=== PATIENT | male | born 1975 | race African-American/Black ===

== ENCOUNTER 2019-06-16 02:03 | Emergency (ER) | payer OTHER ==
[~2019-06-16] VITALS: Ht 175.3 cm; Wt 109.3 kg
--- NOTE | 2019-06-16 02:06 | NUR ---
ED Nurse Note: pt walked in c/o sob x 15 min but denies cp, pt reports he was at a constitution party before coming to ED, denies any lung hx but reports he was a smoker and occasionally vape/use marijuana, pt Hx MS. pt AA&ox4, gcs=15, skin warm and dry, noted pt tachypnea but no resp distress noted, airway intact, LS=clear, pt o2sat 100% on RA. sinus rhythm on desk monitor. vss. will cont monitor. mother at the bedside.
[2019-06-16] MEDS ORDERED: PROZAC10 MG ORAL (02:09)
[2019-06-16] MEDS ORDERED: AMITRIPTYLINE100 MG ORAL (02:10)
[2019-06-16] MEDS ORDERED: BACLOFEN5 MG PO (02:10)
[2019-06-16] MEDS ORDERED: LISINOPRIL5 MG ORAL (02:10)
[2019-06-16] MEDS: LORazepam Inj 2mg/ml 1ml IV ONE ×2 (02:42→02:47)
--- NOTE | 2019-06-16 02:44 | Emergency Room Report ---
History of Present Illness General Chief Complaint: Dyspnea/Respdistress Source: Patient Present Illness HPI This is a 44-year-old male with a history of multiple sclerosis. He presents with chief complaint of shortness of breath. Onset was just prior to arrival. He was at a libertarian and was drinking. He also said that he was sleeping a lot. He also became short of breath. No chest pain. No nausea no vomiting. Has a history of anxiety but does not think this feels like anxiety. Denies any fever chills but denies any radiation. Nothing made it better. Nothing made it worse. [place] tightness in his lungs. Allergies: Coded Allergies: PENICILLINS (Verified Allergy, Unknown, 06/16/19) Patient History Past Medical History: see triage record, old chart reviewed Past Surgical History: other Pertinent Family History: none Social History: Denies: smoking Immunizations: other Reviewed Nursing Documentation: PMH: Agreed; PSxH: Agreed Nursing Documentation-PMH Past Medical History: No History, Except For Hx Hypertension: Yes Hx Gastrointestinal Problems: Yes - GERD Review of Systems Eye: Denies: eye pain, blurred vision ENT: Denies: ear pain, nose congestion, throat swelling Respiratory: Reports: shortness of breath; Denies: cough Cardiovascular: Denies: chest pain, palpitations Gastrointestinal: Denies: abdominal pain, diarrhea, nausea, vomiting Musculoskeletal: Denies: back pain, joint pain Skin: Denies: rash Neurological: Denies: headache, numbness Endocrine: Denies: increased thirst, increased urine Hematologic/Lymphatic: Denies: easy bruising All Other Systems: negative except mentioned in HPI Physical Exam Vital Signs Date Time Temp Pulse Resp B/P (MAP) Pulse Ox O2 Delivery O2 Flow Rate FiO2 06/16/19 02:06 98.4 87 18 135/90 (105) 96 Vitals normal Sp02 EP Interpretation: reviewed, normal General Appearance: well appearing, no apparent distress, alert Head: normocephalic, atraumatic Eyes: bilateral eye PERRL, bilateral eye EOMI ENT: hearing grossly normal, normal pharynx Neck: full range of motion, supple, no meningismus Respiratory: chest non-tender, lungs clear, normal breath sounds Cardiovascular #1: regular rate, rhythm, no murmur Gastrointestinal: normal bowel sounds, non tender, no mass, no organomegaly, no bruit, non-distended Musculoskeletal: back normal, gait/station normal, normal range of motion Psychiatric: mood/affect normal Medical Decision Making Diagnostic Impression: Primary Impression: Dyspnea Qualified Codes: R06.00 - Dyspnea, unspecified ER Course This patient presents with dyspnea. This may be secondary to beginning of an infection. This could be secondary to anxiety or from his vaping. No evidence of ACS, PE, dissection to name a few. Patient felt better now. Will discharge home. EKG Diagnostic Results Rate: normal Rhythm: NSR ST Segments: no acute changes Rhythm Strip Diag. Results EP Interpretation: yes Rate: 87 Rhythm: NSR, no PVC's, no ectopy Chest X-Ray Diagnostic Results Chest X-Ray Diagnostic Results : Chest X-Ray Ordered: Yes # of Views/Limited/Complete: 1 View Indication: Shortness of Breath EP Interpretation: Yes Interpretation: no consolidation, no effusion, no pneumothorax, no acute cardiopulmonary disease Impression: No acute disease Electronically Signed by: Eduardo Gonzalez MD Last Vital Signs Date Time Temp Pulse Resp B/P (MAP) Pulse Ox O2 Delivery O2 Flow Rate FiO2 06/16/19 02:06 98.4 87 18 135/90 (105) 96 Status: improved Disposition: HOME, SELF-CARE Condition: Stable Referrals: [facility]ERR[facility] (PCP) Patient Instructions: Shortness of Breath, Myzf-[id number] Eduardo Gonzalez MD Jun 16, 2019 02:44
[2019-06-16 02:46] VITALS: BP 130/96
--- NOTE | 2019-06-16 02:47 | NUR ---
ED Nurse Note: pt refused ativan, states he doesn't need medication, pt AA&ox4. notified ERMD. medication waste done witness 2 rn.
--- NOTE | 2019-06-16 02:49 | NUR ---
ED Nurse Note: REPORT GIVEN TO HAYDEE MIRZA AND [facility].
--- NOTE | 2019-06-16 02:50 | NUR ---
ED Nurse Note: Returned from break, resumed care from mars simpson, pt in bed awake, alert and oriented x 4, pt is on cardiac monitoring, has patent iv site, family at bedside, pt denies cp or any pain and no sob noted at rest, will continue to closely monitor for any changes or increased distress.
[2019-06-16 02:52] LABS: BASOPHILS % (AUTO) 0.9 % (0.0-2.0); EOSINOPHILS % (AUTO) 3.6 % (0.0-3.0); HEMATOCRIT 39.6 % (42.0-52.0); HEMOGLOBIN 13.6 G/DL (14.2-18.0); LYMPHOCYTES % (AUTO) 27.3 % (20.0-45.0); MEAN CORPUSCULAR VOLUME 80 FL (80-99); MONOCYTES % (AUTO) 11.4 % (1.0-10.0); NEUTROPHILS % (AUTO) 56.9 % (45.0-75.0); PLATELET COUNT 214 K/UL (150-450); RED BLOOD COUNT 4.94 M/UL (4.70-6.10); RED CELL DISTRIBUTION WIDTH 11.6 % (11.6-14.8); WHITE BLOOD COUNT 4.5 K/UL (4.8-10.8)
[2019-06-16 02:59] LABS: ANION GAP 6 mmol/L (5-15); BLOOD UREA NITROGEN 13 mg/dL (7-18); CALCIUM 9.5 MG/DL (8.5-10.1); CARBON DIOXIDE 29 MMOL/L (21-32); CHLORIDE 102 MMOL/L (98-107); POTASSIUM 4.4 MMOL/L (3.5-5.1); SODIUM 136 MMOL/L (136-145)
[2019-06-16 03:03] LABS: ALANINE AMINOTRANSFERASE 39 U/L (12-78); ALBUMIN 3.9 G/DL (3.4-5.0); ALBUMIN/GLOBULIN RATIO 1.1 (1.0-2.7); ALKALINE PHOSPHATASE 73 U/L (46-116); ASPARTATE AMINO TRANSFERASE 36 U/L (15-37); BILIRUBIN,TOTAL 0.6 MG/DL (0.2-1.0)
--- NOTE | 2019-06-16 03:05 | Diagnostic Imaging Report ---
EXAM: XR Chest, 1 View CLINICAL HISTORY: SOB TECHNIQUE: Frontal view of the chest. COMPARISON: None available FINDINGS: Lungs: Low lung volumes with mild bibasilar opacity most likely reflecting subsegmental atelectasis. No focal pulmonary consolidations. Pleural space: No evidence of pleural effusion or pneumothorax. Heart: Heart size is within normal limits. Mediastinum: Mediastinal structures are unremarkable. Bones joints: Imaged bony thorax is unremarkable. IMPRESSION: Low lung volumes with bibasilar opacities suggestive of atelectasis. No focal pulmonary consolidations. No evidence of acute cardiopulmonary disease.
[2019-06-16 03:40] VITALS: BP 130/96
--- NOTE | 2019-06-16 03:40 | NUR ---
ER DISCHARGE NOTE: Patient is cleared to be discharged per ERMD, pt is aox4, on room air, with stable vital signs. pt was given dc and prescription instructions, pt was able to verbalize understanding, pt id band and iv site removed without complications. pt is able to ambulate with steady gait. pt took all belongings.
--- NOTE | 2019-06-17 11:36 | Cardiology Report ---
APPROVED REPORT EKG Measurement Heart [id number] Normal sinus rhythm Left anterior fascicular block Minimal voltage criteria for LVH, may be normal variant Abnormal ECG
== END 2019-06-16 03:40 | disposition home or self-care (01) ==
LOC: EMR 02:32
DX: R06.00 Dyspnea, unspecified (principal); G35 Multiple sclerosis; I10 Essential (primary) hypertension; K21.9 Gastro-esophageal reflux disease without esophagitis; Z88.0 Allergy status to penicillin
CPT/HCPCS: 36415; 71045; 80053; 83880; 84484; 85025; 85379; 93005; Z7502; 99284